=== PATIENT | female | born 1950 | race Caucasian/White ===

== ENCOUNTER → 2017-01-09 | Outpatient (CLI) | payer MEDICARE | END | disposition home or self-care (01) | LOC: CFH 15:46 | PROVIDERS: ATTEND Nurse Practitioner Primary Care | DX: M54.12 Radiculopathy, cervical region (principal); M50.222 Other cervical disc displacement at C5-C6 level; M25.78 Osteophyte, vertebrae; M50.223 Other cervical disc displacement at C6-C7 level | CPT/HCPCS: 72050; 72141 ==

== ENCOUNTER → 2017-03-02 | Outpatient (CLI) | payer MEDICARE ==
[~2017-03-02] MED LIST: ESTR1PAT10 TP; PROG100C16 PO
[2017-03-02 12:43] LABS: BASOPHILS # (AUTO) 0.02 x10^3/uL (0-0.1); BASOPHILS % (AUTO) 0 % (0-1); EOSINOPHILS # (AUTO) 0.05 x10^3/uL (0-0.4); EOSINOPHILS % (AUTO) 1 % (1-7); LYMPHOCYTES # (AUTO) 1.78 x10^3/uL (1-3.4); LYMPHOCYTES % (AUTO) 25 % (22-44); MD NO; MEAN CORPUSCULAR HEMOGLOBIN 32.4 pg (27.0-34.8); MEAN CORPUSCULAR HGB CONC 33.7 g/dL (32.4-35.8); MEAN PLATELET VOLUME 8.2 fL (7.4-10.4); MONOCYTES # (AUTO) 0.51 x10^3/uL (0.2-0.8); MONOCYTES % (AUTO) 7 % (2-9); NEUTROPHILS # (AUTO) 4.69 x10^3/uL (1.8-6.8); NEUTROPHILS % (AUTO) 67 % (42-75); PLATELET COUNT 274 x10^3/uL (130-400); RED BLOOD COUNT 4.58 x10^6/uL (3.82-5.3); RED CELL DISTRIBUTION WIDTH 13.3 % (9.6-15.2)
[2017-03-02 12:52] LABS: INTERNATIONAL NORMALIZED RATIO 0.95 (0.93-1.1); PROTHROMBIN TIME 9.9 Seconds (9.6-11.5)
[2017-03-02 12:58] LABS: ANION GAP 7 mmol/L (5-15); CALCIUM 9.4 mg/dL (8.5-10.1); CHLORIDE 104 mmol/L (98-107)
[2017-03-02 13:00] LABS: CREATININE 0.75 mg/dL (0.55-1.02)
== END | disposition home or self-care (01) ==
LOC: STAR 11:10
PROVIDERS: ATTEND Neurological Surgery
DX: Z01.818 Encounter for other preprocedural examination (principal); M54.12 Radiculopathy, cervical region
CPT/HCPCS: 36415; 71046; 80048; 85025; 85610; 85730; 93005

== ENCOUNTER 2017-03-16 05:20 | Day surgery (SDC) | payer MEDICARE ==
[~2017-03-16] VITALS: Ht 154.9 cm; Wt 62.7 kg
[2017-03-16 06:02] VITALS: BP 144/84
[2017-03-16] MEDS ORDERED: LACTATED RINGERS 1,000 ML IV SCH (06:02)
[2017-03-16] MEDS ORDERED: MIDAZOLAM 1 MG/ML, 2ML ONE (07:02)
[2017-03-16] MEDS ORDERED: FENTANYL PF 250 MCG/5ML ONE (07:02)
[2017-03-16] MEDS ORDERED: CEFAZOLIN 1,000 MG ONE ×2 (07:05)
[2017-03-16] MEDS ORDERED: PROPOFOL 10 MG/ML, 20ML ONE (07:05)
[2017-03-16] MEDS ORDERED: LIDOCAINE-MPF 2% ,5ML ONE (07:05)
[2017-03-16] MEDS ORDERED: ROCURONIUM 10 MG/ML,10ML ONE (07:05)
[2017-03-16] MEDS ORDERED: DEXAMETHASONE 4 MG/ML, 1ML ONE (07:06)
[2017-03-16] MEDS ORDERED: ONDANSETRON 2MG/ML, 2ML ONE ×2 (07:06)
[2017-03-16] MEDS ORDERED: THROMBIN 5,000 UNIT VIAL TP ONE (07:08)
[2017-03-16] MEDS ORDERED: BUPIVACAINE/PF 0.5% ONE (07:08)
[2017-03-16] MEDS ORDERED: EPINEPHRINE 1 MG/ML, 1ML ONE (07:09)
[2017-03-16] MEDS ORDERED: BACITRACIN 50,000 UNIT ONE (07:09)
[2017-03-16] MEDS ORDERED: SCOPOLAMINE PATCH, 1.5MG PATCH.TD72 TD ONE ×2 (07:13)
[2017-03-16] MEDS ORDERED: PHENYLEPHRINE 10 MG/ML ONE (07:31)
[2017-03-16] MEDS ORDERED: MEPERIDINE/PF 25MG/0.5ML IVPush PRN (09:00)
[2017-03-16] MEDS ORDERED: OXYcodone 5 MG/5 ML ORAL.SOL UDC PO PRN (09:00)
[2017-03-16] MEDS ORDERED: HYDROmorphone 1 MG/ML, 1ML IV PRN (09:00)
[2017-03-16] MEDS ORDERED: PROMETHAZINE 25 MG/ML, 1ML IV PRN (09:00)
[2017-03-16] MEDS ORDERED: hydrALAzine 20 MG/ML, 1ML IV PRN (09:00)
[2017-03-16] MEDS ORDERED: FENTANYL PF 100 MCG/2ML IV PRN (09:00)
[2017-03-16] MEDS ORDERED: LABETALOL 5MG/ML, 20ML IV PRN (09:00)
[2017-03-16] MEDS ORDERED: ONDANSETRON 2MG/ML, 2ML IVPush PRN ×2 (09:00→13:00)
[2017-03-16] MEDS ORDERED: ACETAMINOPHEN 325 MG TABLET PO PRN (09:00)
[2017-03-16] MEDS ORDERED: OXYcodone 5 MG/5 ML ORAL.SOL UDC ONE (09:13)
[2017-03-16] MEDS ORDERED: OXYcodone IR 5MG TABLET PO PRN (14:00)
== END 2017-03-16 14:55 | disposition home or self-care (01) ==
LOC: OUT 05:20
PROVIDERS: ATTEND Neurological Surgery
DX: M50.123 Cervical disc disorder at C6-C7 level with radiculopathy (principal); Z88.6 Allergy status to analgesic agent; Z86.19 Personal history of other infectious and parasitic diseases; K58.9 Irritable bowel syndrome, unspecified
CPT/HCPCS: 63020; 72040; C1713; J0171; J0690; J1100; J2250; J2370; J2405; J2704; J3010; J3490; J7120